=== PATIENT | male | born 1995 | race Caucasian/White ===

== ENCOUNTER 2019-02-05 18:19 | Emergency (ER) | payer BC, OTHER ==
[2019-02-05] MEDS ORDERED: Fluorescein Opthalmic Strip ONE (18:46)
[2019-02-05] MEDS ORDERED: Nitrazine Tape 1 ROLL ONE (19:45)
== END 2019-02-05 20:08 | disposition home or self-care (01) ==
LOC: SCSER 18:19
DX: H10.211 Acute toxic conjunctivitis, right eye (principal)
CPT/HCPCS: 99283

== ENCOUNTER 2022-02-10 19:00 | Outpatient (CLI) | payer BC | END 2022-02-10 19:01 | disposition home or self-care (01) | LOC: SLEEPLAB 19:00 | PROVIDERS: ATTEND Family Medicine | DX: G47.33 Obstructive sleep apnea (adult) (pediatric) (principal); R53.83 Other fatigue; E66.9 Obesity, unspecified; R06.83 Snoring; I10 Essential (primary) hypertension; G47.00 Insomnia, unspecified; G47.10 Hypersomnia, unspecified | CPT/HCPCS: 95810 ==